=== PATIENT | female | born 1955 | race Caucasian/White ===

== ENCOUNTER 2020-01-19 15:14 | Outpatient (CLI) | payer OTHER, SELFPAY ==
--- NOTE | ~2020-01-19 | DEXA_ITS ---
BMD(1) Young-Adult(2) Age-Matched(3) Region (g/cm2) T-score Z-score WHO Classification L1 1.354 1.7 3.3 Normal L2 1.404 1.6 3.2 Normal L3 1.433 1.7 3.3 Normal L4 1.256 0.3 1.9 Normal L1-L4 1.354 1.3 2.9 Normal Trend: L1-L4 Change vs Change vs Measured Age BMD(1) Baseline Previous Date (years) (g/cm2) (%) (%) 01/19/2020 [age] 1[age]354 baseline - 1 - Statistically 68% of repeat scans fall within 1SD (+- 0.010 g/cm2 for AP Spine L1-L4) 2 - [place] (Combined NHANES (ages 20-30) / OrderBorder (ages 20-40)) AP Spine Reference Population (v112) 3 - Matched for Age, Weight (females 25-100 kg), Ethnic 11 - World Health Organization - Definition of Osteoporosis and Osteopenia for Women: Normal = T-score at or above -1.0 SD; Osteopenia = T-score between -1.0 and -2.5 SD; Osteoporosis = T-score at or below -2.5 SD; (WHO definitions only apply when a young healthy Women reference database is used to determine T-scores.) Printed: 01/19/2020 3:49:55 PM (13.60)76:3.00:50.00:12.0 0.00:9.00 0.60x1.05 21.4:%Fat=39.0% 0.00:0.00 0.00:0.00 Filename: [id number].dfx Scan Mode: Standard;OneScan 37.0 [employer] [id number] BMD(1) Young-Adult(2) Age-Matched(3) Region (g/cm2) T-score Z-score WHO Classification Neck 0.895 -1.0 0.5 Normal Total 0.947 -0.5 0.7 Normal Hip [place] Length Comparison (mm) (Right = 107.3 mm) (Mean = 100.8 mm) Trend: Total Change vs Change vs Measured Age BMD(1) Baseline Previous Date (years) (g/cm2) (%) (%) 01/19/2020 64.4 0.947 baseline - 1 - Statistically 68% of repeat scans fall within 1SD (+- 0.012 g/cm2 for Right Femur Total) 2 - [place] (Combined NHANES (ages 20-30) / OrderBorder (ages 20-40)) Femur Reference Population (v112) 3 - Matched for Age, Weight (females 25-100 kg), Ethnic 11 - World Health Organization - Definition of Osteoporosis and Osteopenia for Women: Normal = T-score at or above -1.0 SD; Osteopenia = T-score between -1.0 and -2.5 SD; Osteoporosis = T-score at or below -2.5 SD; (WHO definitions only apply when a young healthy Women reference database is used to determine T-scores.) Printed: 01/19/2020 3:49:55 PM (13.60)76:3.00:50.00:12.0 0.00:9.90 0.60x1.05 14.9:%Fat=29.0% 0.00:0.00 0.00:0.00 Neck Angle (deg)= 64 Filename: [id number].dfx Scan Mode: Standard 37.0 uGy [employer] [id number] Dear Cherelle Roberson, Your patient Silva Escoto completed a BMD test on 01/19/2020 using the [employer] DXA System (analysis version: 13.60) manufactured by [employer]. The following summarizes the results of our evaluation. PATIENT BIOGRAPHICAL: Name: Silva Escoto Date: 1955 Height: 60.0 in. Gender: Female Exam Date: 01/19/2020 Weight: 129.0 lbs. Indications: Back Pain, Caffeinated drinks, , Height Loss Fractures: Treatments: Aspirin, Tylenol, Vitamin C ASSESSMENT: The BMD measured at Femur Neck is 0.895 g/cm2 with a T-score of -1.0. Bone density is up to 10% below young normal. This patient is considered normal according to World Health Organization (WHO) criteria. Fracture risk is low. Site Region Measured Measured WHO Young Adult Young Adult BMD Date Age Classification T-score
== END 2020-01-19 15:15 | disposition home or self-care (01) ==
LOC: CHSIMG 15:18
PROVIDERS: PCP Family Medicine
DX: Z78.0 Asymptomatic menopausal state (principal)
CPT/HCPCS: 77080

== ENCOUNTER 2022-09-09 08:00 | Outpatient (RCR) | payer MEDICARE, MEDICAID, SELFPAY ==
--- NOTE | 2022-09-09 09:05 | PTOPEVAL1 ---
Assessment and note entered by JT [employer], PT Evaluation Information Assessment Status Evaluation Diagnosis L knee pain, contusion Onset 09/02/22 Subjective Information patient reports she fell down her basement stairs and injured her L knee. she reports she has done this 2 times in the past 6 months. she reports she pain on both sides of the front of the L knee, and behind the L knee. she reports she has had xrays of the L knee (negative for any fracture). she reports no MRI of the L knee. 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 she reports she had an operation this past to repair a ligament. she reports she is unsure which ligament . she reports the pain now feels the same as it did prior to surgery. she reports she has a follow up with her surgeon on 09/16/22. she reports she has increased pain with walking. she reports at times it will give out on her, and she also reports giving out/pain with twising/turning. Reported Pain Level Pain Score 8: Self Report Assessment PT Clinical Summary mrs. rocha is a 67 yo woman who presents to skilled PT services for evaluation and treatment of L knee pain. she presents with knee pain, weakness, and difficulty completing functional activities following a fall. she presents with signs and symptoms of meniscus injury, flare up of arthritis, and pes anserine bursitis/hamstrings tendonitis. she would benefit from continued skilled PT intervention to improve her objective/ functional deficits and return to her PLOF. Plan of Care Interventions Electrical Stimulation,Hot Pack/Cold Pack,Manual Therapy,Neuro Re-education,Patient/Caregiver Educati,Therapeutic Activities,Therapeutic Exercise PT Services Indicated Yes Treatment Frequency and 3x weekly for 12 visits Duration These treatments will address the objective and functional deficits as defined above. The patient will be advanced safely and appropriately in order for the patient to progress towards his/her prior level of function. Additional exercises will be introduced and as well as a comprehensive home exercise program upon discharge, if needed, ?to ensure carryover of functional gains achieved in the clinic. This treatment plan has been reviewed and agreement upon by the patient.
== END 2022-09-09 23:59 | disposition home or self-care (01) ==
LOC: CHSPT 08:00
PROVIDERS: Visit Provider Orthopaedic Surgery
DX: S80.02XD Contusion of left knee, subsequent encounter (principal)
CPT/HCPCS: 97110; 97161

== ENCOUNTER 2023-11-24 16:08 | Emergency (ER) | payer MEDICARE, MEDICAID, SELFPAY ==
--- NOTE | ~2023-11-24 | XR_ITS ---
EXAMINATION: XR ribs RT 2V w CXR 2V DATE: 11/24/2023 16:40 INDICATION: Trauma with right rib pain TECHNIQUE: PA and lateral views of the chest and 3 views of the right ribs were obtained. COMPARISON: Chest radiograph dated 03/26/06 FINDINGS: No rib fractures identified. No focal airspace opacities, pulmonary edema, pleural effusion or pneumo thorax. Heart size normal. Tortuous thoracic aorta. Thoracic kyphosis with chronic mild anterior wedg ing of a few mid and lower thoracic vertebral bodies and with severe spondylosis. Noncemented right t otal shoulder arthroplasty. Capsular calcification of bilateral breast implants. IMPRESSION: 1. No rib fracture or acute cardiopulmonary disease. Reviewed, dictated and finalized at location B.
[2023-11-24 16:08] VITALS: BP 113/79; PULSE 73; RESP 18; TEMP 37.1; O2SAT 96
--- NOTE | 2023-11-24 16:13 | ED.GENADULT ---
HPI - General Adult General Chief complaint: Unspecified Stated complaint: mowing injury Time Seen by Provider: 11/24/23 16:12 Source: patient Mode of arrival: ambulatory Limitations: no limitations History of Present Illness HPI narrative: 68 year old female arrives to the Emergency Department complaining of right lower chest wall pain. Patient states she was mowing yesterday and struck in chest by tree branch. Hurts to take deep breath. Has abrasions to left elbow and upper arm. Last tetanus < 5 years. Denies any other injury. Onset (ago): day(s) (1) Location: chest Radiation: non-radiation Severity: moderate Pain Consistency: constant Relieving factors: none Exacerbating factors: other (deep breath) Associated symptoms: denies other symptoms Related Data Home Medications Medication Instructions Recorded Confirmed losartan 100 1 tablet PO DAILY 11/24/23 11/24/23 mg-hydrochlorothiazide 25 mg tablet Allergies Allergy/AdvReac Type Severity Reaction Status Date / Time Sulfa (Sulfonamide Allergy Rash Verified 11/24/23 16:15 Antibiotics) Review of Systems Review of Systems: All systems reviewed & are unremarkable except as noted in HPI and below Constitutional: Constitutional: Reports as per HPI and Reports no additional constitutional complaints Eyes: Eyes: Reports as per HPI and Reports no additional eye complaints ENT: Reports system reviewed and no additional complaints, except as documented Cardiovascular: Cardiovascular: Reports as per HPI and Reports no additional cardiovascular complaints Respiratory: Respiratory: Reports as per HPI, Reports no additional respiratory complaints and Reports pain on inspiration Gastrointestinal: Gastrointestinal: Reports as per HPI, Reports no additional gastrointestinal complaints and Denies abdominal pain Genitourinary: Genitourinary: Reports no additional female genitourinary complaints Musculoskeletal: Musculoskeletal: Reports no additional musculoskeletal complaints Integumentary/Breasts: Skin/Breast: Reports system reviewed and no additional complaints, except as docu Neurologic: Reports system reviewed and no additional complaints, except as documented [facility] Family History Family History Mother Hypertension Family history of diabetes mellitus in first degree relative Family history of heart disease in male family member before age 55 Father Family history of seizure disorder Sibling Family history of heart disease in male family member before age 55 Social History Social History Smoking status: Never smoker Alcohol intake: never Exam Const: General: cooperative, healthy appearing and no acute distress Orientation/consciousness: patient oriented x3 Limitations: no limitations HENMT: Head: normal to inspection Ears: external ears normal Face/Nose/Sinus: Normal external nose present Face and sinus: normal facial exam Mouth: Yes Normal oral and palatal mucosa present Eyes: General: appearance normal, both eyes and all related structures Visual Chao: normal visual chao by confrontation Alignment and Position: alignment normal Pupils: Equal, round and reactive pupils present EOM: EOMs intact bilaterally Neck: Neck: normal visual inspection and nontender Chest: Chest palpation & inspection: tenderness (right lower chest wall anteriorly) Resp: Effort & Inspection: normal respiratory effort Auscultation: clear to auscultation bilaterally and diminished lung sounds Cardio: Rate: regular rate Rhythm: regular rhythm GI: Inspection: normal to inspection and non-distended GI Palp: No abdominal tenderness and Yes Soft to palpation Auscultation: normal bowel sounds Back/Spine/Pelvis: Back: no CVA tenderness Cervical Spine: No cervical muscular tenderness Thoracic/Lumbar Spine: thoracic and lumbar spine normal to inspecti
[2023-11-24 16:20] VITALS: O2SAT 96
[2023-11-24] MEDS: NEOMYCIN/POLYMYXIN/BACITRACIN OINTMENT PACKET 1 PACKET TOPICAL (16:38)
== END 2023-11-24 17:05 | disposition home or self-care (01) ==
PROVIDERS: Emergency Provider Emergency Medicine; PCP Family Medicine
DX: R07.89 Other chest pain (principal)
CPT/HCPCS: 71046; 71100; 99283